=== PATIENT | female | born 1940 | race Caucasian/White ===

== ENCOUNTER → 2019-06-21 | Outpatient (CLI) | payer MEDICARE, BC ==
[~2019-06-21] MED LIST: ADULT LOW DOSE81 MG PO; ALLOPURINOL 10100 M1 PO; CATAPRES0.1 MG PO; CEFUROXIME250 MG PO; CELEBREX 200 M200 M1 PO; CELEBREX 200 M200 MG PO; CHERRY EXTRACT PO; CIPRO500 MG PO; CITRUCEL500 MG PO; CLORPRES 0.1-11 EACH PO; COREG12.5 MG PO; ESTRACE0.5 MG PO; FISH OIL 1,001000 M2 PO; FISH OIL500 M1 PO; GLUCOSAMINE CH1 EAC2 PO; HYDRALAZINE 5050 MG PO; HYDROCODONE-AP1 EAC6 PO; HYDROXYZINE HCL25 M2 PO; IRON325 PO; K-DUR 20 MEQ T20 MEQ PO; KLOR-CON 1010 MEQ PO; LASIX 40 MG TAB40 M2 PO; LASIX 40 MG TAB40 MG PO; LISINOPRIL-HCT1 EAC2 PO; MEDROLDOSEPACK PO; NEPHROCAPS SOFT1 CAP PO; NORCO 5-325 TA1 EACH PO; OSTEO BI FLEX PO; PRINIVIL20 MG PO; TOPROL XL100 MG PO; UNICOMPLEX M TA1 TA1 PO; VITAMIN D1000 UNI1 PO; ZOCOR40 MG PO
--- NOTE | 2019-06-21 12:57 | 2DMMODE ---
[place] [address] 2 D/M-MODE ECHOCARDIOGRAM Name: RUBI HAWKINS Room: [facility]#: [id number] Admission: 06/21/19 Attend Phys: Kelly Schulz, Discharge: Date of : 40 Date of Service: 06/21/19 1257 Report #: [id number] THIS REPORT FOR: //name// APPROVED REPORT Study performed: 06/21/2019 10:19:34 EXAM: Comprehensive 2D, Doppler, and color-flow Echocardiogram Patient Location: Out-Patient BSA: 1.92 HR: 55 bpm BP: 160/59 mmHg Other Information Study Quality: Good Indications Hypertension/HDD 2D Dimensions IVSd: 13.23 (7-11mm) LVOT Diam: 20.70 (18-24mm) LVDd: 53.03 mm PWd: 11.53 (7-11mm) Ascending Ao: 32.58 (22-36mm) LVDs: 32.49 (25-40mm) Aortic Root: 32.67 mm Volumes Left Atrial Volume (Systole) LA ESV Index: 28.30 mL/m2 Aortic Valve AoV Peak Humberto.: 1.47 m/s AO Peak Gr.: 8.68 mmHg LVOT Max P.36 mmHg AO Mean Gr.: 4.75 mmHg LVOT Mean P.24 mmHg LVOT Max V: 1.04 m/s AO V2 VTI: 36.13 cm LVOT Mean V: 0.69 m/s FRANDY (VTI): 2.75 cm2 LVOT V1 VTI: 29.51 cm Mitral Valve MV Peak Gr.: 5.74 mmHg MV Mean Gr.: 1.51 mmHg E/A Ratio: 1.48 MV Decel. Time: 256.92 ms MV E Max Humberto.: 1.05 m/s MV PHT: 74.51 [place] [address] 2 D/M-MODE ECHOCARDIOGRAM Name: RUBI HAWKINS Room: [facility]#: [id number] Admission: 06/21/19 Attend Phys: Kelly Schulz, Discharge: Date of : 40 Date of Service: 06/21/19 1257 Report #: [id number] MVA (PHT): 2.95 cm2 TDI E/Lateral E': 8.75 E/Medial E': 8.75 Medial E' Humberto.: 0.12 m/s Lateral E' Humberto.: 0.12 m/s Pulmonary Valve PV Peak Humberto.: 1.06 m/s PV Peak Gr.: 4.50 mmHg Tricuspid Valve RAP Estimate: 5.00 mmHg TR Peak Gr.: 21.57 mmHg RVSP: 26.57 mmHg PA Pressure: 26.57 mmHg Left Ventricle The left ventricle is normal size. There is normal LV segmental wall motion. Mild concentric left ventricular hypertrophy. Left ventricular systolic function is normal. The left ventricular ejection fraction is within the normal range. LVEF is 60-65%. The left ventricular diastolic function is normal. Right Ventricle The right ventricle is normal size. The right ventricular systolic function is normal. Atria Left atrium is mildly dilated. The right atrium size is normal. Aortic Valve The Aortic valve is sclerotic. No aortic regurgitation is present. There is no aortic valvular stenosis. Mitral Valve Moderate mitral annular calcification. The mitral valve is mildly thickened. Mild mitral regurgitation. No evidence of mitral valve stenosis. Tricuspid Valve The tricuspid valve is normal in structure. Mild tricuspid regurgitation. estimated pa pressure 25 mm Hg Pulmonic Valve The pulmonary valve is normal in structure. There is no pulmonic [place] [address] 2 D/M-MODE ECHOCARDIOGRAM Name: RUBI HAWKINS Room: [facility]#: [id number] Admission: 06/21/19 Attend Phys: Kelly Schulz, Discharge: Date of : 40 Date of Service: 06/21/19 1257 Report #: [id number] Great Vessels The aortic root is normal in size. IVC is normal in size and collapses >50% with inspiration. Pericardium There is no pericardial effusion. <Conclusion> Mild concentric left ventricular hypertrophy. LVEF is 60-65%. Left atrium is mildly dilated. The Aortic valve is sclerotic. <ELECTRONICALLY SIGNED> By: Alonzo Amador MD, FACC 06/21/19 1257 1257 1257 Alonzo Amador MD, FACC /INF
== END ==
LOC: M.CRD 10:00
DX: I08.3 Combined rheumatic disorders of mitral, aortic and tricuspid valves (principal); I11.0 Hypertensive heart disease with heart failure; I50.32 Chronic diastolic (congestive) heart failure

== ENCOUNTER 2019-07-24 13:58 | Inpatient (IN) | payer MEDICARE, BC ==
[~2019-07-24] VITALS: Ht 162.6 cm; Wt 91.4 kg
[2019-07-24 14:05] VITALS: BP 208/75
[2019-07-24] MEDS ORDERED: CARVEDILOL25 MG PO (14:15)
[2019-07-24] MEDS ORDERED: CHONDROITIN SU100 GM PO (14:17)
[2019-07-24] MEDS ORDERED: FISH OIL 1,0001 EAC9 PO (14:18)
[2019-07-24 14:46] LABS: ABSOLUTE BASOPHILS 0.1 thou/uL (0.0-0.2); ABSOLUTE EOSINOPHILS 0.1 thou/uL (0.0-0.7); ABSOLUTE LYMPHOCYTES 1.2 thou/uL (0.8-5.3); ABSOLUTE MONOCYTES 0.4 thou/uL (0.0-1.2); ABSOLUTE NEUTROPHILS 5.7 thou/uL (1.6-8.1); EOSINOPHILS 1.5 %; HEMATOCRIT 32.6 % (37.0-47.0); HEMOGLOBIN 11.1 gm/dL (12.0-15.0); LYMPHOCYTES 16.5 %; MCH 30.2 pg (26.0-34.0); MCHC 33.9 g/dL (28.0-37.0); MCV 89.1 fL (80.0-100.0); MONOCYTES 5.6 %; MPV 9.4 fl. (7.2-11.1); NUCLEATED RBCS 0 /100WBC; PLATELET COUNT* 158 thou/uL (150-400); POLYS 75.4 %; RBC 3.66 mil/uL (4.20-5.00); RDW-CV 15.2 % (10.5-14.5); WBC 7.5 thou/uL (4.0-11.0)
[2019-07-24 14:57] LABS: CALCIUM 8.3 mg/dL (8.5-10.1); CREATININE 1.5 mg/dL (0.6-1.3); POTASSIUM 4.2 mmol/L (3.5-5.1)
[2019-07-24 15:09] LABS: ALBUMIN 3.4 g/dL (3.4-5.0); TOTAL BILIRUBIN 0.4 mg/dL (<0.1-1.0); TOTAL PROTEIN 7.1 g/dL (6.4-8.2)
[2019-07-24 16:11] VITALS: BP 181/66
[2019-07-24 16:30] VITALS: BP 207/71
[2019-07-24 16:59] LABS: PHOSPHORUS* 3.5 mg/dL (2.5-4.9)
--- NOTE | 2019-07-24 18:48 | NUR ---
PT BROUGHT TO UNIT AROUND 1630 FROM ER. PT SR TO SB ON TELE. A&OX4, HYPERTENSION, HISTORY OF CHF, PATIENT ORIENTED TO ROOM, HOURLY ROUNDING PERFORMED, POSSESSIONS AND CALL LIGHT WITHIN REACH. PATIENT UP AD OLE. NPO AT MIDNIGHT.
[2019-07-24 20:00] VITALS: BP 154/39
[2019-07-25] VITALS (7 sets, daily range): BP systolic 118–190; BP diastolic 48–66
--- NOTE | 2019-07-25 06:38 | NUR ---
ASSUMED CARE OF PT AFTER REPORT AT 1930. PT A&OX4. VSS. PHYSICAL ASSESSMENT COMPLETED AND CHARTED. PT ON RA. PT TRACING SB ON TELE. PT UPADLIB TO RESTROOM. PT DENIES ANY PAIN OR DISCOMFORT. INSTRUCTED ON NPO POST MIDNIGHT FOR CARDIO CONSULT. PT ABLE TO SLEEP WELL ON BED. CALL LIGHT WITHIN REACH.
[2019-07-25 08:13] LABS: CALCIUM 8.3 mg/dL (8.5-10.1); CREATININE 1.7 mg/dL (0.6-1.3); POTASSIUM 3.9 mmol/L (3.5-5.1)
--- NOTE | 2019-07-25 13:33 | NUR ---
Pt is A&O. Resides at home with her . Active and independent. No DME. No hx of HH or SNF. Goal is home at dc, no needs anticipated.
--- NOTE | 2019-07-25 14:56 | NUR ---
PATIENT AMBULTING IN ROOM THROUGHOUT SHIFT. ALL SAFETY MEASURES MAINTAINED. PATIENT DENIES FURTHER NEEDS AT THIS TIME. REPORT GIVEN TO
--- NOTE | 2019-07-25 15:30 | NUR ---
ASSUMED CARE OF PT. PT SITTING IN CHAIR. NSR. DENIES NEEDS
--- NOTE | 2019-07-25 17:35 | NUR ---
PT UP IN CHAIR THROUGHOUT SHIFT. FAMILY AT BS AND UPDATED ON PLAN OF CARE. NSR ON MONITOR
[2019-07-26 03:40] VITALS: BP 162/57
--- NOTE | 2019-07-26 05:37 | NUR ---
PT IS ABLE TO COMMUNICATE HER NEEDS TO STAFF EFFECTIVELY. SHE HAS DENIED THE NEED FOR PAIN MEDICATION UP TO THIS TIME. 1500 ML FLUID RESTRICTION MAINTAINED; TOLERATED WELL BY PT. POSSIBLE DISCHARGE LATER TODAY.
--- NOTE | 2019-07-26 07:20 | NUR ---
CHANGE OF SHIFT BEDSIDE REPORT GIVEN PATIENT SEEN AT BEDSIDE, IN BED ASLEEP ASSUMED PATIENT CARE
[2019-07-26 08:00] VITALS: BP 181/70
--- NOTE | 2019-07-26 10:47 | EKG ---
[place] [address] ELECTROCARDIOGRAM REPORT Name: RUBI HAWKINS Room: [address] ADM IN M.R.#: [id number] Admission: 07/24/19 Attend Phys: Jud Loera Discharge: Date of : 40 Report #: [id number] THIS REPORT FOR: //name// [facility] ED Test Date: 2019-07-24 Test Time: 14:08:47 Pat Name: RUBI HAWKINS Department: Room: [facility] Gender: F Improvement Specialist: ARPAN : 1940 Requested By: Elder Russell Order Number: [id number] MD: Nico Tang Measurements Intervals [place] Rate: 56 P: 57 [place]: 156 QRS: 37 QRSD: 98 T: 28 QT: 469 QTc: 453 Interpretive Statements Sinus rhythm Baseline wander in lead(s) II,III,aVF Compared to ECG 10/03/2016 15:13:51 No significant changes Electronically Signed On 07-26-2019 10:47:30 FILM REPLACEMENT ORDERER by Nico Tang [email or web address] <ELECTRONICALLY SIGNED> By: Nico Tang MD, FACC 07/26/19 1047 1408 1408 Nico Tang MD, [facility] /EPI
[2019-07-26 11:58] VITALS: BP 187/62
[2019-07-26] MEDS ORDERED: HYDRALAZINE 2525 MG PO ×2 (12:09→13:13)
[2019-07-26] MEDS ORDERED: IMDUR 60 MG TAB60 M1 PO (12:09)
[2019-07-26] MEDS ORDERED: COREG6.25 MG PO (12:09)
[2019-07-26] MEDS ORDERED: LASIX 40 MG TAB40 M1 PO (12:09)
--- NOTE | 2019-07-26 12:59 | NUR ---
HEART FAILURE EDUCATION: ENTERED Pt. ROOM TO DISCUSS HEART FAILURE MEDICATIONS. WENT OVER EXISTING MEDICATIONS FOR HF AT DISCHARGE WHICH ARE HYDRALAZINE, FUROSEMIDE AND CARVEDILOL. DISCUSSED HOW THE MEDICATIONS WORK IN THE BODY, BENEFITS, WHY IT WAS PRESCRIBED AND POSSIBLE SIDE EFFECTS. AT THE END OF TALK Pt. HAD NO QUESTIONS. ASKED TO TALK TO PROJECT DEVELOPMENT COORDINATOR OR PHARMACIST IF SHE HAD ANY QUESTIONS IN THE FUTURE.
--- NOTE | 2019-07-26 14:00 | NUR ---
PATIENT DISCHARGED TO HOME ALL DISCHARGE INSTRUCTIONS GIVEN, ACKNOWLEDGED, SIGNED PAPEREWORK GIVEN IV AND HEART MONITOR REMOVED PERSONAL BELONGINGS RETURNED PATIENT ASSISTED OUT VIA WC GOOD CONDITION TO WAITNG CAR
== END 2019-07-26 14:00 | disposition home or self-care (01) | DRG 308 ==
LOC: M.ERS 13:58 → M.2W 14:59 → M.TBA-ER 14:59 → M.2W 16:26
PROVIDERS: Emergency Medicine Emergency Medical Services; Registered Nurse; ADMIT Family Medicine
DX: R00.1 Bradycardia, unspecified (principal); I50.33 Acute on chronic diastolic (congestive) heart failure; I13.0 Hypertensive heart and chronic kidney disease with heart failure and stage 1 through stage 4 chronic kidney disease, or unspecified chronic kidney disease; T44.7X5A Adverse effect of beta-adrenoreceptor antagonists, initial encounter; E78.5 Hyperlipidemia, unspecified; N18.3 Chronic kidney disease, stage 3 (moderate); I16.0 Hypertensive urgency; Z79.82 Long term (current) use of aspirin; Z90.49 Acquired absence of other specified parts of digestive tract; Z88.1 Allergy status to other antibiotic agents; Z79.899 Other long term (current) drug therapy; Y92.89 Other specified places as the place of occurrence of the external cause

== ENCOUNTER → 2020-05-08 | Outpatient (CLI) | payer MEDICARE, BC ==
[~2020-05-08] VITALS: Ht 160 cm; Wt 86.2 kg
[2020-05-08] VITALS (13 sets, daily range): BP systolic 146–188; BP diastolic 56–73
[~2020-05-08] MED LIST changes: +CARVEDILOL25 MG PO; +CHONDROITIN SU100 GM PO; +COREG6.25 MG PO; +FISH OIL 1,0001 EAC9 PO; +HYDRALAZINE 2525 MG PO; +IMDUR 60 MG TAB60 M1 PO; +ISOSORBIDE MONO30 M1 PO; +LASIX 40 MG TAB40 M1 PO
[2020-05-08 12:51] LABS: MCHC 34.4 g/dL (28.0-37.0)
[2020-05-08 12:52] LABS: HEMATOCRIT 30.9 % (37.0-47.0); HEMOGLOBIN 10.6 gm/dL (12.0-15.0); MCH 30.7 pg (26.0-34.0); MCV 89.1 fL (80.0-100.0); MPV 9.1 fl. (7.2-11.1); RBC 3.47 mil/uL (4.20-5.00); RDW-CV 14.7 % (10.5-14.5); WBC 8.7 thou/uL (4.0-11.0)
[2020-05-08 13:00] LABS: CALCIUM 8.5 mg/dL (8.5-10.1); CREATININE 1.7 mg/dL (0.6-1.3); POTASSIUM 3.9 mmol/L (3.5-5.1)
[2020-05-08 13:02] LABS: APTT 25.7 Seconds (25.0-31.3); INR 1.5; PROTIME 15.1 Seconds (9.20-11.50)
--- NOTE | 2020-05-10 17:11 | CARD ---
[address] [address] CARDIAC CATH REPORT Name: RUBI HAWKINS Room: [facility]#: [id number] Admission: 05/08/20 Attend Phys: Nico Tang MD Discharge: Date of : 40 Report #: [id number] THIS REPORT FOR: //name// cc: Beckie Rabago MD, Katrina MD ~ APPROVED REPORT Study performed: 05/08/2020 13:40:58 Patient Status: Out-Patient Room #: Event Personnel: Nico Tang Employment Programs Analyst, Nevaeh Pandya RN RN, Wilber Dang RTR Scrub, Shanika Macdonald RTR Monitor, Aurea Paez RN Batcher Operator Exam: Insertion of Dual Chamber Permanent Pacemaker The patient is a 79 year-old female with a history of . Conscious Sedation Start time: 14:26 End Time: 15:00 Fentanyl 75 mcg Versed 3 mg Implanted Devices: BIOTRONIK SOLIA S 60 VENTRICULAR LEAD. SERIAL: [id number]. BIOTRONIK SOLIA S 53 ATRIAL LEAD. SERIAL: [id number]. BIOTRONIK EDORA 8 DR-T GENERATOR. SERIAL: [id number]. Procedure The patient underwent informed consent. We discussed the details of the procedure including the risks, which include, but not limited to bleeding, infection, vascular damage, cardiac perforation, and pneumothorax. She understood these risks and was willing to proceed. As such, she was brought to the EP/Cardiac Catheterization laboratory in a fasting and sedated state and prepped and draped in a sterile fashion, received IV antibiotics prior to initiation of the procedure and a venogram was performed showing patency of the left axillary vein. The patient underwent conscious sedation, with no related complications. The patient was brought to the EP/Cardiac Catheterization laboratory and the left chest and shoulder were prepped and draped in a sterile manner. During this case, Fluoroscopy and Omnipaque 20cc were used for imaging. The left subclavian region was infiltrated with 2% Lidocaine with Epinephrine subcutaneous anesthesia. [place] [address] CARDIAC CATH REPORT Name: RUBI HAWKINS Room: [facility]#: [id number] Admission: 05/08/20 Attend Phys: Nico Tang MD Discharge: Date of : 40 Report #: [id number] in the left upper chest cavity. The subcutaneous pocket was formed via blunt dissection. Percutaneous venous access was achieved and an introducer sheath was inserted into the left Subclavian vein. Through the introducer sheaths the atrial and ventricular lead wires were positioned in the right atrial appendage and right ventricular apex respectively. Utilizing fluoroscopic guidance, the atrial and ventricular lead wires were advanced over the wires and positioned in the right atria and right ventricle respectively. Capturing and sensing thresholds were verified. Electrode Parameters P Wave: 2.5 mV R Wave: Greater than 20 mV Atrial Threshold: 1.0 V at 0.40 ms Ventricular Threshold: 0.9 V at 0.40 ms Atrial Resistance: 545 ohms Ventricular Resistance: 619 ohms Dual Chamber The atrial and ventricular leads were then secured using 0 silk sutures. The subcutaneous pocket was irrigated with ancef 1 gram antibiotic solution.The atrial and ventricular leads were attached to the appropriate receptacles on the pulse generator and set screws firmly tightened to insure adequate contact and stability. The lead and pulse generator were placed into the subcutaneous pocket. Sharp and sponge counts were confirmed to be correct. At this time the pocket was closed subcutaneously with a 2.0 Vicryl and the skin was closed with a 4.0 Vicryl. The operative site was dressed in sterile fashion with benzoin spray, steri strips, telfa, tegaderm and the patient was transferred to the floor in stable condition. Complications The patient tolerated the procedure well and there were no complications associated with the procedure. Findings Specimens Removed: No Estimated Blood Loss: less than 5 ml Conclusion 1. Paroxysmal atrial fibrillation, sick sinus syndrome and atrioventricular block. 2. Successful placement of a dual-chamber [place] [address] CARDIAC CATH REPORT Name: RUBI HAWKINS Room: [facility]#: [id number] Admission: 05/08/20 Attend Phys: Nico Tang MD Discharge: Date of : 40 Report #: [id number] ventricular lead placement. Recommendations 1. Follow-up site check in 1 week. 2. Follow-up device interrogation in 1 to 2 months. Addendum: Predischarge chest x-ray showed dislodgment of the atrial lead. The patient was taken back to the interventional radiology lab. The incision was opened. The device removed from the pocket. The atrial lead was freed from the generator. The atrial lead was repositioned to a secure position within the right atriaL appendage. Thresholds were checked and deemed to be satisfactory. Sensing was excellent. The generator and redundant leads were then placed back within the pacemaker pocket. The deep tissues were closed with 2-0 interrupted stitches of Vicryl. The skin incision was then closed with a single subcuticular stitch of 4-0 Vicryl. Several Steri-Strips were placed on the incision. A sterile Telfa dressing was then covered with a Tegaderm. The patient tolerated revision of her atrial lead without difficulty. <ELECTRONICALLY SIGNED> By: Nico Tang MD, FACC 05/10/201709 09 09Micmason Tang MD, FACC /INF
== END ==
LOC: M.CRD 08:22 → M.CL 12:00
PROVIDERS: ATTEND Internal Medicine Cardiovascular Disease
DX: I49.5 Sick sinus syndrome (principal); I34.0 Nonrheumatic mitral (valve) insufficiency; I48.0 Paroxysmal atrial fibrillation; I13.0 Hypertensive heart and chronic kidney disease with heart failure and stage 1 through stage 4 chronic kidney disease, or unspecified chronic kidney disease; I50.32 Chronic diastolic (congestive) heart failure; N18.3 Chronic kidney disease, stage 3 (moderate); E78.2 Mixed hyperlipidemia; Z79.899 Other long term (current) drug therapy; Z90.49 Acquired absence of other specified parts of digestive tract; Z90.710 Acquired absence of both cervix and uterus; Z98.890 Other specified postprocedural states; Z88.8 Allergy status to other drugs, medicaments and biological substances

== ENCOUNTER → 2021-09-19 | Outpatient (CLI) | payer MEDICARE, BC | LOC: M.RAD 12:15 | PROVIDERS: ATTEND Family Medicine | DX: M85.861 Other specified disorders of bone density and structure, right lower leg (principal) ==

== ENCOUNTER → 2021-10-21 | Outpatient (CLI) | payer MEDICARE, BC | LOC: M.RAD 10:20 | PROVIDERS: ATTEND Family Medicine | DX: Z12.31 Encounter for screening mammogram for malignant neoplasm of breast (principal); Z78.0 Asymptomatic menopausal state ==